=== PATIENT | male | born 1995 | race African-American/Black ===

== ENCOUNTER 2021-09-30 16:16 | Emergency (ER) | payer MEDICAID, SELFPAY ==
--- NOTE | 2021-09-30 16:24 | ED.EAR ---
HPI - Ear Problem General Chief complaint: Ear Stated complaint: ear prob Time Seen by Provider: 09/30/21 16:28 Source: patient, RN notes reviewed and old records reviewed Mode of arrival: ambulatory Limitations: no limitations History of Present Illness HPI Narrative: 26-year-old male presents to [facility] with complaints of right ear discomfort with ringing and pressure feeling and some discomfort to right temporal area. He reports no fevers, chill or sweats, denies any cough or congestion or any sore throat, admits to some nasal drainage at times. Patient admits to some history of seasonal allergies in the past, denies any history of asthma. Patient reports that he has taken some Ibuprofen for his discomfort. MD Complaint: ear pain Location: right ear Related Data Allergies Allergy/AdvReac Type Severity Reaction Status Date / Time No Known Allergies Allergy Unverified 04/06/19 17:50 Review of Systems Review of Systems: CONSTITUTIONAL: Denies fever, chills, or sweats. EYES: Denies visual changes, redness, or discharge. ENT: reports occasional rhinorrhea,denies congestion, sore throat,positive for right otalgia. CARDIOVASCULAR: Denies chest pain, palpitations, or edema. RESPIRATORY: Denies cough or dyspnea. GASTROINTESTINAL: Denies abdominal pain, nausea, vomiting, or diarrhea. GENITOURINARY: Denies dysuria or hematuria. SKIN: Denies rash or itching. MUSCULOSKELETAL: Denies back pain, joint pain, or myalgia. NEUROLOGIC: reports occasional right temporal headache,denies any numbness, or weakness. PSYCHIATRIC: reports some anxiety denies depression. All systems reviewed & are unremarkable except as noted in HPI and below [facility] Past Medical History Medical History (Updated 09/30/21 @ 17:10 by Yi Corea NP) Migraine Seasonal allergies Family History Family History (Updated 09/30/21 @ 17:10 by Yi Corea NP) Mother Hypertension Social History Social History (Updated 09/30/21 @ 17:11 by Yi Corea NP) Smoking status: Never smoker Alcohol intake: current Alcohol use details: rare social Substance use type: does not use Living arrangements: with family Gender identity (if verbalized by the patient): Male Comments At time of signature, agree with nursing past medical, surgical, social and family history. There is no relevant family history pertinent to the presenting complaint Exam Narrative: GENERAL: Well-appearing, well-nourished, and in no acute distress. HEAD: Normocephalic, atraumatic. EYES: PERRLA and EOMI. ENT: Nares with minimal redness, clear rhinorrhea no epistaxis. Mucous membranes moist.Right TM red and bulging, left TM normal with good light reflex,throat pink with no lesions or exudates, no tonsil swelling. NECK: Supple.no lymphadenopathy CHEST: Clear to auscultation. No respiratory distress.SAO2 100% on room air HEART: Regular rate and rhythm. No murmur heard. Normal peripheral pulses. ABDOMEN: Soft, nontender, nondistended, normal active bowel sounds. EXTREMITIES: Normal range of motion. No edema. SKIN: Warm, dry, no rash. NEURO: No focal deficits. Alert and oriented x3. Course Course Level of Care: Express Care Visit Medical Decision Making Differential Diagnosis Differential Diagnosis: otitis media, otitis externa, URI, seasonal allergies, Medical Records Medical records reviewed: Yes I reviewed the external patient's medical records. Critical Care Time Critical Care Time Critical Care Time: No Discharge Plan Discharge Clinical Impression: Otitis media Qualifiers: Otitis media type: serous Chronicity: acute Laterality: right Recurrence: non-recurrent Qualified Code(s): H65.01 - Acute serous otitis media, right ear Patient Disposition: Home, Self-Care Condition: Stable Instructions: Antibiotic Form, Ear Infection (ED) Additional Instructions: Increase fluids especially juices and water [id number] cough and cold medicine of your
[2021-09-30 16:28] VITALS: BP 168/108; PULSE 96; RESP 16; TEMP 37.1; O2SAT 100
== END 2021-09-30 16:49 | disposition home or self-care (01) ==
PROVIDERS: Emergency Provider Registered Nurse; PCP Internal Medicine
DX: H65.01 Acute serous otitis media, right ear (principal)
CPT/HCPCS: 99213; G0463